=== PATIENT | female | born 1935 | race Hispanic/Latino ===

== ENCOUNTER 2016-12-06 19:30 | Outpatient (CLI) | payer MEDICARE, MEDICAID | END 2016-12-06 19:31 | disposition home or self-care (01) | LOC: SLEEPLAB 19:30 | PROVIDERS: ATTEND Internal Medicine Pulmonary Disease | DX: G47.33 Obstructive sleep apnea (adult) (pediatric) (principal); E66.9 Obesity, unspecified; I10 Essential (primary) hypertension; G47.10 Hypersomnia, unspecified; G47.00 Insomnia, unspecified; F41.9 Anxiety disorder, unspecified | CPT/HCPCS: 95811 ==

== ENCOUNTER 2016-12-12 16:29 | Emergency (ER) | payer MEDICARE, MEDICAID ==
[2016-12-12 17:10] LABS: #Basophils 0.1 thou/uL (0.0-0.2); #Eosinphils 0.1 thou/uL (0.0-0.7); #Lymphocytes 1.7 thou/uL (1.20-3.40); #Monocytes 0.4 thou/uL (0.11-0.59); #Neutrophils 2.2 thou/uL (1.40-6.50); %Basophils 1.2 % (0.0-1.0); %Eosinophils 2.8 % (0.0-10.0); %Lymphocytes 38.3 % (21.0-51.0); %Monocytes 9.4 % (0.0-10.0); Hematocrit 29.7 % (36.0-47.0); Mean Platelet Volume 7.3 fL (7.4-10.4); Red Blood Cell (RBC) Count 3.07 mill/uL (4.20-5.40); White Blood Cell (WBC) Count 4.5 thou/uL (4.8-10.8)
[2016-12-12 17:38] LABS: ALT (SGPT) 11 U/L (8-55); AST (SGOT) 11 U/L (5-34); Alkaline Phosphatase 82 U/L (40-150); Anion Gap 12 mmol/L (10-20); BUN (Urea Nitrogen) 22 mg/dL (9.8-20.1); Bilirubin, Total 0.3 mg/dL (0.2-1.2); Calc. Creatinine Clearance 0 mL/min (70-130); Calcium 8.4 mg/dL (7.8-10.44); Carbon Dioxide 24 mmol/L (23-31); Chloride 102 mmol/L (98-107); Estimated GFR-MDRD 52; Globulin 5.9 g/dL (2.4-3.5); Protein, Total 8.8 g/dL (6.0-8.3)
[2016-12-12 18:43] LABS: Troponin I Less than 0.010 ng/mL (< 0.028)
--- NOTE | 2016-12-12 19:22 | RAD ---
UPRIGHT PORTABLE CHEST ONE VIEW: HISTORY: A 81-year-old female with dyspnea. COMPARISON: 10/19/2016. FINDINGS: Heart size is borderline enlarged. Bronchovascular markings are slightly prominent but no confluent pneumonia, overt edema, or pleural effusion. Stable appearance from 10/19/2016. IMPRESSION: Borderline cardiomegaly with increased bronchovascular markings, stable. No evidence of pneumonia, edema, or other acute process. POS: [facility]
[2016-12-12 19:27] LABS: Bilirubin Negative (Negative); Blood, Urine Negative (Negative); Glucose, Urine (Dipstick) Negative (Negative); Ketone, Urine Negative (Negative); Nitrite Negative (Negative); Protein, Urine (Dipstick) Negative (Neg-Trace); Urobilinogen 0.2 mg/dL (0.2-1.0)
[2016-12-12 19:28] LABS: Bacteria/HPF None Seen HPF (None Seen); Hyaline Casts/LPF 0-3 HYALINE CAST LPF (0-3 Hyaline); RBC/HPF 0-3 HPF (0-3); Squamous Epithelial 0-3 HPF (0-3)
--- NOTE | 2016-12-12 20:29 | CT ---
BRAIN CT WITHOUT IV CONTRAST: History: 81-year-old female with history of seizure, hypertension, dyslipidemia. History of stable brain tumo r. FINDINGS: There is some atrophy and chronic white matter ischemic change noted bilaterally. There is 0.7 cm di ameter hyperdense mass along the right tentorium, most likely a small meningioma, stable from 7-24-1 5. No evidence for acute hemorrhage. No mass effect. Sinuses and mastoids are clear of acute process . IMPRESSION: Small stable right tentorial hyperdense mass, evidence for a small meningioma. No new mass or acute hemorrhage. Chronic white matter ischemic changes with some left sided basal ganglia lacunar infarct changes, stable. POS: [facility]
== END 2016-12-12 19:30 | disposition home or self-care (01) ==
LOC: ERS 16:29
DX: R56.9 Unspecified convulsions (principal); E78.5 Hyperlipidemia, unspecified; I10 Essential (primary) hypertension; Z79.82 Long term (current) use of aspirin; Z79.899 Other long term (current) drug therapy
CPT/HCPCS: 36415; 70450; 71010; 80053; 80177; 81003; 81015; 82553; 83605; 84146; 84484; 85025; 93005

== ENCOUNTER 2017-05-11 14:19 | Outpatient (CLI) | payer MEDICARE, MEDICAID | END 2017-05-11 14:20 | disposition home or self-care (01) | LOC: BICMAMMO 14:19 | PROVIDERS: ATTEND Nurse Practitioner Family | DX: Z13.820 Encounter for screening for osteoporosis (principal); M85.88 Other specified disorders of bone density and structure, other site; M85.852 Other specified disorders of bone density and structure, left thigh | CPT/HCPCS: 77080 ==

== ENCOUNTER 2017-06-12 08:26 | Inpatient (IN) | payer MEDICARE, MEDICAID ==
[2017-06-12 09:45] LABS: #Lymphocytes 0.7 thou/uL (1.20-3.40); #Monocytes 0.3 thou/uL (0.11-0.59); #Neutrophils 1.7 thou/uL (1.40-6.50); %Basophils 0.5 % (0.0-1.0); %Eosinophils 1.3 % (0.0-10.0); %Lymphocytes 25.8 % (21.0-51.0); %Monocytes 9.7 % (0.0-10.0); %Neutrophils 62.7 % (42.0-75.0); Hemoglobin 7.7 g/dL (12.0-16.0); Mean Corpuscular HGB CONC 33.6 g/dL (32.0-36.0); Mean Corpuscular Hemoglobin 32.6 pg (27.0-31.0); Mean Corpuscular Volume 97.1 fl (81.0-99.0); Mean Platelet Volume 7.7 fL (7.4-10.4); Platelet Count 165 thou/uL (130-400); RBC Distribution Width 14.5 % (11.5-14.5); Red Blood Cell (RBC) Count 2.35 mill/uL (4.20-5.40); White Blood Cell (WBC) Count 2.7 thou/uL (4.8-10.8)
[2017-06-12 10:02] LABS: ALT (SGPT) 10 U/L (8-55); AST (SGOT) 11 U/L (5-34); Albumin 2.5 g/dL (3.4-4.8); Alkaline Phosphatase 87 U/L (40-150); Anion Gap 8 mmol/L (10-20); BUN (Urea Nitrogen) 25 mg/dL (9.8-20.1); Bilirubin, Total 0.4 mg/dL (0.2-1.2); CK (CPK) 11 U/L (29-168); Calc. Creatinine Clearance 0 mL/min (70-130); Calcium 10.1 mg/dL (7.8-10.44); Carbon Dioxide 28 mmol/L (23-31); Chloride 102 mmol/L (98-107); Estimated GFR-MDRD 49; Globulin 7.9 g/dL (2.4-3.5); Glucose 92 mg/dL (83-110); Protein, Total 10.4 g/dL (6.0-8.3); Sodium 134 mmol/L (136-145)
[2017-06-12 10:08] LABS: CKMB 0.6 ng/mL (0-6.6); Troponin I Less than 0.010 ng/mL (< 0.028)
--- NOTE | 2017-06-12 10:14 | RAD ---
CHEST 1 VIEW: Date: 06/12/17 COMPARISON: 12/12/16. HISTORY: Chest pain. FINDINGS: Diminished lung volumes. Patchy interstitial and alveolar opacities. No consolidation or masses. No p neumothorax or osseous abnormalities. Normal cardiac silhouette. Atherosclerosis of aorta is noted. IMPRESSION: Patchy interstitial and alveolar opacities. Correlate for infiltrate. POS: [facility]
[2017-06-12 10:41] LABS: INR-International Normal Ratio 1.2; PTT 32.1 SEC (22.9-36.1); Prothrombin Time 15.2 SEC (12.0-14.7)
--- NOTE | 2017-06-12 11:41 | CT ---
CT OF THE BRAIN WITHOUT CONTRAST: Indication: History of weakness after fall on 06-03-17. The patient has been increasingly sleepy since the fall with decreased appetite and difficulty standing and walking. Comparison: The exam is compared to a prior dated 12-12-16. FINDINGS: Moderate chronic small vessel white matter ischemic change is stable. Lacunar infarct involving the l eft caudate head is stable. The partially calcified meningioma involving the right tentorium and left middle cranial fossa is stable. No acute infarct, hemorrhage, or hydrocephalus is present. Skull and extracranial soft tissues are unremarkable appearing. IMPRESSION: No acute intracranial abnormality. POS: [facility]
[2017-06-12 12:23] LABS: Bilirubin Negative (Negative); Blood, Urine Negative (Negative); Clarity CLEAR (Clear); Glucose, Urine (Dipstick) Negative (Negative); Leukocyte Negative (Negative); Nitrite Negative (Negative); Protein, Urine (Dipstick) Trace mg/dL (Neg-Trace); Specific Gravity, Urine 1.019 (1.002-1.036); pH, Urine 6.5 (5.0-9.0)
[2017-06-12 15:05] LABS: Troponin I 0.012 ng/mL (< 0.028)
[2017-06-12 18:02] LABS: Hemoglobin 9.9 g/dL (12.0-16.0)
[2017-06-12 18:22] LABS: Troponin I Less than 0.010 ng/mL (< 0.028)
[2017-06-12] MEDS ORDERED: Ondansetron ODT 4 MG TAB PO PRN (21:53)
[2017-06-12] MEDS ORDERED: Ondansetron HCl/PF 4 MG/2 ML Vial IVP PRN (21:53)
[2017-06-12] MEDS ORDERED: hydrALAZINE 20 MG/ML VIAL SLOW IVP PRN (21:53)
[2017-06-12] MEDS ORDERED: Acetaminophen 500 MG TAB PO PRN (21:53)
[2017-06-12] MEDS: Sodium Chloride 0.9% 1,000 ML IV SCH (23:55)
[2017-06-13] MEDS: Sodium Chloride 0.9% 1,000 ML IV SCH ×2 (04:02→18:38)
--- NOTE | 2017-06-13 04:10 | HP ---
DATE OF ADMISSION: 06/12/2017 PRIMARY CARE PHYSICIAN: You Brooks. CHIEF COMPLAINT: Falls, confusion and weakness. HISTORY OF PRESENT ILLNESS: This is a 81-year-old female who presented to [facility] Emergency Department with an apparent history of falls x2 on 06/03/2017 and 06/08/19 18, found by family members to be more lethargic and unable to walk with her usual rolling walker. T he patient with a significant history of prior seizure disorder, as well as meningioma conservatively managed. The family reports the patient was diagnosed with this several years prior to this evaluat ion; however, due to patient's anxiety, they have not disclosed the diagnosis to the patient and have been followed on a regular outpatient basis with serial CT imaging. No specific seizure-like activi ty was reported by family members and the patient exhibited no unilateral weakness. The family repor ts patient had been noted with a slower speech, decreased appetite, difficulty standing by herself. No specific current change to her chronic medication regimen, exposure history, travel, recent fever, chills or immunizations. No specific documented or historical report of head trauma or loss of cons ciousness after recent falls. In the emergency room, the patient underwent general evaluation includ ing metabolic screening showing hemoglobin of 7.7 in the context of known chronic normocytic anemia. Most recent hemoglobin on record dated on 12/12/2016, 9.9. The patient was typed and crossed and gi pritesh 1 unit of packed red blood cells. The patient underwent CT imaging of the brain showing stable m eningioma without an acute process. EKG showed no acute findings and patient was treated symptomatic ally and supportively. The patient was referred to the Hospitalist Service for further evaluation. PAST MEDICAL HISTORY: 1. History of chronic stable meningioma. 2. History of subdural hematoma status post mechanical fall, medically managed. 3. Seizure disorder. 4. Hypertension. 5. Hyperlipidemia. 6. Generalized weakness. 7. History of falls. PAST SURGICAL HISTORY: 1. Status post total abdominal hysterectomy. 2. Status post bilateral salpingo-oophorectomy. 3. Status post thyroidectomy. 4. Status post left ankle surgery. CURRENT MEDICATIONS: 1. Amlodipine 10 mg 1 tab p.o. daily. 2. Hydrochlorothiazide 25 mg p.o. daily. 3. Keppra 500 mg p.o. b.i.d. 4. Lisinopril 20 mg p.o. daily. ALLERGIES: No known drug allergies. FAMILY HISTORY: Positive for hypertension and cancer. SOCIAL HISTORY: Patient is accompanied by multiple family members in the emergency room. Resides in the [place], [place] area. No current alcohol, tobacco or illicit drug use. Ambulatory with use of a r olling walker. Recent falls x2 on 06/03/2017 and 06/07/2017. REVIEW OF SYSTEMS: The following complete review of systems was negative, unless otherwise mentioned in the HPI or below: Constitutional: Weight loss or gain, ability to conduct usual activities. Sk in: Rash, itching. Eyes: Double vision, pain. ENT/Mouth: Nose bleeding, neck stiffness, pain, te nderness. Cardiovascular: Palpitations, dyspnea on exertion, orthopnea. Respiratory: Shortness of breath, wheezing, cough, hemoptysis, fever or night sweats. Gastrointestinal: Poor appetite, abdom inal pain, heartburn, nausea, vomiting, constipation, or diarrhea. Genitourinary: Urgency, frequenc y, dysuria, nocturia. Musculoskeletal: Pain, swelling. Neurologic/Psychiatric: Anxiety, depressio n. Allergy/Immunologic: Skin rash, bleeding tendency. PHYSICAL EXAMINATION: VITAL SIGNS: On admission, blood pressure 110/81, pulse 72, respiratory rate 18, temperature 98.2 de grees Fahrenheit, O2 saturation 95% on room air. GENERAL APPEARANCE: This is a 81-year-old female, ill appearing, lethargic, in mild distres s. HEENT: Pupils are equal, round, and reactive to light and accommodation. Extraocular muscles are in tact. No scleral icterus, no conjunctival injection. Nares patent. OP is clear. Teeth in fair rep air. NECK: Supple, no cervical adenopathy, no thyromegaly, no carotid bruits, no JVD appreciated. Cervic al spine with full active and passive range of motion. CHEST: Lungs are clear to auscultation bilaterally. CARDIOVASCULAR: S1, S2, without noted murmur. ABDOMEN: Rounded, soft, nontender, nondistended. Bowel sounds are positive in all four quadrants. There is no hepatosplenomegaly, no abdominal bruits, no rebound or guarding appreciated. EXTREMITIES: Warm and dry with fair turgor. No clubbing, cyanosis or asymmetric edema appreciated. Pulses palpable distally at the dorsalis pedis, posterior tibial, and popliteal arteries bilaterally . Capillary refill less than 2 seconds. NEUROLOGIC: Cranial nerves II-XII are grossly intact. No focal or lateralizing signs appreciated. [place] coma scale 14. PERTINENT LABORATORY AND X-RAY FINDINGS: Sodium 134, potassium 4.0, chloride 102, CO2 of 28, BUN 25, creatinine 1.08 with estimated GFR 49, glucose 92. Lactic acid level 0.9, calcium 10.1. LFTs withi n normal limits. Troponin I negative x3. Serum total protein 10.4. CBC showed a white blood cell c ount of 2.7, hemoglobin ranged between 7.7 and 9.9. Hematocrit ranged between 22.9 to 30, platelet c ount 165 with normal differential. PT 15.2, INR 1.2, PTT 32.1. [facility]inalysis negative[facility]2017 showed no acute intracranial process. Chronic ischemic white mat ter changes noted. Lacunar infarct involving the left caudate head stable. Partially calcified meni ngioma in the right tentorium and left middle cerebral cranial fossa. Portable chest x-ray dated 04/2017 showed patchy interstitial changes bilaterally. EKG dated 06/12/2017 by my interpretation sh ows sinus mechanism with heart rates in the 60s. Normal R-wave progression noted in the precordial l torsten. Normal axis. T-wave inversion noted in leads III and F as well as V3 through V4. ASSESSMENT AND PLAN: 1. Acute/subacute normocytic anemia. The patient will be placed on observation status. Status post 1 unit of packed red blood cells in the emergency department. We will check stool guaiac. Check ir on studies, B12 and folate level in the a.m. No current obvious evidence of acute blood loss. We wi ll continue to monitor serial hemoglobin and hematocrit. Suspect component due to chronic kidney dis ease. 2. Acute metabolic encephalopathy. Suspect multifactorial. Continue general supportive measures. Continue to monitor serial hemoglobin and hematocrit. Check orthostatic vital signs in the a.m. Con tinue intravenous normal saline at 75 mL per hour. 3. Generalized weakness with falls. Obtain PT evaluation in the a.m. General fall risk precautions . Check orthostatic vital signs. 4. Acute kidney injury on chronic kidney disease stage 3. Continue intravenous normal saline at 75 mL per hour. Avoid nephrotoxic agents and limit contrast exposure. Repeat creatinine in the a.m. 5. Hypertension. We will obtain accurate home blood pressure regimen and monitor clinically. 6. Seizure disorder. Continue Keppra 500 mg p.o. b.i.d. 7. Prophylaxis. Sequential compression devices while in bed. Pepcid 20 mg p.o. b.i.d. General fal l risk precautions. PT evaluation in the a.m. 8. Code status is FULL. Surrogate medical decision maker is patient's son.
[2017-06-13 09:14] LABS: Reticulocyte Count 0.8 % (0.5-1.5)
[2017-06-13 09:36] LABS: ALT (SGPT) 15 U/L (8-55); AST (SGOT) 14 U/L (5-34); Albumin 2.3 g/dL (3.4-4.8); Alkaline Phosphatase 91 U/L (40-150); Anion Gap 8 mmol/L (10-20); BUN (Urea Nitrogen) 20 mg/dL (9.8-20.1); Bilirubin, Total 0.3 mg/dL (0.2-1.2); Calc. Creatinine Clearance 56 mL/min (70-130); Carbon Dioxide 27 mmol/L (23-31); Chloride 104 mmol/L (98-107); Estimated GFR-MDRD 54; Globulin 7.7 g/dL (2.4-3.5); Glucose 93 mg/dL (83-110); Iron 43 ug/dL (50-170); Iron Binding Capacity, Total 181 mcg/dL (265-497); Potassium 3.9 mmol/L (3.5-5.1); Sodium 135 mmol/L (136-145)
[2017-06-13 10:05] LABS: Folate (Folic Acid) 13.9 ng/mL (7.0-31.4)
[2017-06-13 10:19] LABS: Eosinophils 7 % (0-10); Hemoglobin 8.8 g/dL (12.0-16.0); Lymphocytes 49 % (21-51); MDiff Complete? YES; Mean Corpuscular HGB CONC 34.5 g/dL (32.0-36.0); Mean Corpuscular Hemoglobin 32.5 pg (27.0-31.0); Mean Corpuscular Volume 94.2 fl (81.0-99.0); Mean Platelet Volume 7.9 fL (7.4-10.4); Monocytes 7 % (0-10); Neutrophil 37 % (42-75); Platelet Count 146 thou/uL (130-400); RBC Distribution Width 13.9 % (11.5-14.5); White Blood Cell (WBC) Count 2.4 thou/uL (4.8-10.8)
[2017-06-13] MEDS: Famotidine 20 MG TAB PO SCH ×2 (11:11→21:04)
[2017-06-13] MEDS: levETIRAcetam 500 MG TAB PO SCH ×2 (11:11→21:04)
[2017-06-13] MEDS: Amlodipine 10 MG TAB PO SCH (11:11)
--- NOTE | 2017-06-13 17:37 | PDOC.PN ---
- Subjective Encounter Start Date: 06/13/17 Encounter Start Time: 17:25 Subjective: f/u for AMS, acute/chronic anemia s/p 1u PRBC's. More awake per -: family report but still confused. - Objective Resuscitation Status: Resuscitation Status FULL:Full Resuscitation MAR Reviewed: Yes Vital Signs & Weight: Vital Signs (12 hours) Temp Pulse Pulse Pulse Pulse Resp BP 06/13/17 11:11 70 154/67 H 06/13/17 11:00 94.8 F L 65 17 06/13/17 10:03 68 69 66 06/13/17 08:05 98.7 F 74 19 138/61 06/13/17 08:00 98.3 F 70 19 BP BP BP BP Pulse Ox Pulse Ox Pulse Ox 06/13/17 11:11 06/13/17 11:00 136/60 95 06/13/17 10:03 200/72 H 142/63 H 189/74 H 85 L 86 L 06/13/17 08:05 92 L 06/13/17 08:00 Weight Admit Weight 168 lb 14.4 oz Weight 168 lb 14.4 oz I&O: 06/12/17 06/13/17 06/14/17 06:59 06:59 06:59 Intake Total 400 Balance 400 Result Diagrams: 06/13/17 08:47 06/13/17 08:47 Additional Labs: Microbiology 06/12/17 14:20 Stool - Formed Stool Occult Blood (TIMOTHY) - Final Laboratory Tests 06/12/17 06/12/17 06/12/17 08:58 08:58 17:35 Hgb 7.7 L 9.9 L Retic Count Immature Retic Fraction Lactic Acid 0.9 Iron TIBC Ferritin Vitamin B12 Folate 06/13/17 06/13/17 06/13/17 08:47 08:47 08:47 Hgb Retic Count Immature Retic Fraction Lactic Acid Iron 43 L TIBC 181 L Ferritin 80.57 Vitamin B12 357 Folate 13.90 06/13/17 08:47 Hgb Retic Count 0.8 Immature Retic Fraction 0.276 Lactic Acid Iron TIBC Ferritin Vitamin B12 Folate Radiology Reviewed by me: Yes (CT brain - negative for acute process, chronic changes) EKG Reviewed by me: Yes (Tele - SR in 70's) Phys Exam - Physical Examination alert, nods to questions HEENT: PERRLA, oral pharynx no lesions Neck: no JVD, supple Respiratory: no wheezing, clear to auscultation bilateral Cardiovascular: RRR Gastrointestinal: soft, non-tender, no distention, positive bowel sounds Musculoskeletal: no edema, pulses present Neurological: normal sensation, moves all 4 limbs A x O x 2 Skin: normal turgor, cap refill <2 seconds Dx/Plan (1) Normocytic anemia Code(s): D64.9 - ANEMIA, UNSPECIFIED Status: Acute Comment: ? subacute, s/p 1u PRBC's, likely component of iron-deficiency, start FeSO4 324mg BID (2) Acute metabolic encephalopathy Code(s): G93.41 - METABOLIC ENCEPHALOPATHY Status: Acute Comment: likely multifactorial including polypharmacy, dehydration (3) General weakness Code(s): R53.1 - WEAKNESS Status: Chronic Comment: PT evaluation for functional assessment (4) Falls Code(s): W19.XXXA - UNSPECIFIED FALL, INITIAL ENCOUNTER Status: Acute Comment: See above, fall risk precautions (5) THOM (acute kidney injury) Code(s): N17.9 - ACUTE KIDNEY FAILURE, UNSPECIFIED Status: Acute Comment: improved with IVF's, continue IVF's and avoid nephrotoxic meds and contrast media (6) CKD (chronic kidney disease), stage III Code(s): N18.3 - CHRONIC KIDNEY DISEASE, STAGE 3 (MODERATE) Status: Chronic (7) Seizure disorder Code(s): G40.909 - EPILEPSY, UNSP, NOT INTRACTABLE, WITHOUT STATUS EPILEPTICUS Status: Chronic Comment: No recurrent seizure activity, continue Keppra 500mg BID - Plan plan discussed w/ family, PT/OT, social sciences chair, speech therapy, out of bed/ ambulate, DVT proph w/SCDs Stable overall -: Continue IVF's 100ml/h -: ST for assessment of po intake and safe swallowing -: Hold antihypertensives x 24h and monitor clinically -: AM lab: BMP, CBC, Ammonia * Convert to inpt status
[2017-06-13] MEDS: cloNIDine 0.1 MG TAB PO PRN (21:04)
[2017-06-14] MEDS: Sodium Chloride 0.9% 1,000 ML IV SCH ×2 (05:23→19:55)
[2017-06-14 07:50] LABS: Mean Corpuscular HGB CONC 33.8 g/dL (32.0-36.0); Mean Corpuscular Hemoglobin 32.9 pg (27.0-31.0); Mean Corpuscular Volume 97.5 fl (81.0-99.0); Mean Platelet Volume 7.7 fL (7.4-10.4); Platelet Count 143 thou/uL (130-400); RBC Distribution Width 14.1 % (11.5-14.5); Red Blood Cell (RBC) Count 2.43 mill/uL (4.20-5.40); White Blood Cell (WBC) Count 2.7 thou/uL (4.8-10.8)
[2017-06-14 07:58] LABS: Anion Gap 8 mmol/L (10-20); BUN (Urea Nitrogen) 14 mg/dL (9.8-20.1); Calc. Creatinine Clearance 64 mL/min (70-130); Calcium 9.3 mg/dL (7.8-10.44); Carbon Dioxide 26 mmol/L (23-31); Chloride 107 mmol/L (98-107); Estimated GFR-MDRD 62; Glucose 89 mg/dL (83-110); Potassium 3.8 mmol/L (3.5-5.1); Sodium 137 mmol/L (136-145)
[2017-06-14 08:55] LABS: Band 5 % (5-11); Eosinophils 4 % (0-10); Lymphocytes 47 % (21-51); MDiff Complete? YES; Monocytes 9 % (0-10); Neutrophil 35 % (42-75); PLT Morphology Comment Appears Adequate; Polychromasia SLIGHT = 2-3 cells (100X) (0-2/hpf); Rouleaux Formation SLIGHT = 1-5 cells (100X) (None Seen)
[2017-06-14] MEDS: levETIRAcetam 500 MG TAB PO SCH ×2 (10:56→20:35)
[2017-06-14] MEDS: Amlodipine 10 MG TAB PO SCH (10:57)
[2017-06-14] MEDS: Ferrous Sulfate 325 MG TAB PO SCH ×2 (11:01→17:41)
[2017-06-14] MEDS: Famotidine 20 MG TAB PO SCH ×2 (11:01→20:35)
--- NOTE | 2017-06-14 17:18 | PDOC.PN ---
- Subjective Encounter Start Date: 06/14/17 Encounter Start Time: 17:00 Subjective: f/u for general weakness, encephalopathy and anemia s/p 1u PRBC's. -: Still weak but ambulated with PT using RW up to 100' - Objective Resuscitation Status: Resuscitation Status FULL:Full Resuscitation MAR Reviewed: Yes Vital Signs & Weight: Vital Signs (12 hours) Temp Pulse Pulse Pulse Resp BP BP 06/14/17 14:38 67 66 138/55 L 150/67 H 06/14/17 10:57 72 06/14/17 09:45 97.3 F L 72 22 H 06/14/17 08:00 97.3 F L 72 22 H BP 06/14/17 14:38 06/14/17 10:57 06/14/17 09:45 187/76 H 06/14/17 08:00 Weight Admit Weight 168 lb 14.4 oz Weight 172 lb I&O: 06/13/17 06/14/17 06/15/17 06:59 06:59 06:59 Intake Total 400 2062 Balance 400 2062 Result Diagrams: 06/14/17 07:33 06/14/17 07:33 Additional Labs: Microbiology 06/12/17 14:20 Stool - Formed Stool Occult Blood (TIMOTHY) - Final Laboratory Tests 06/12/17 06/12/17 06/12/17 08:58 08:58 17:35 WBC Hgb 7.7 L 9.9 L Retic Count Immature Retic Fraction Lactic Acid 0.9 Iron TIBC Ferritin Ammonia Vitamin B12 Folate 06/13/17 06/13/17 06/13/17 08:47 08:47 08:47 WBC Hgb Retic Count Immature Retic Fraction Lactic Acid Iron 43 L TIBC 181 L Ferritin 80.57 Ammonia Vitamin B12 357 Folate 13.90 06/13/17 06/13/17 06/14/17 08:47 08:47 07:33 WBC 2.4 L Hgb 8.8 L Retic Count 0.8 Immature Retic Fraction 0.276 Lactic Acid Iron TIBC Ferritin Ammonia 62 Vitamin B12 Folate EKG Reviewed by me: Yes (Tele - SR) Phys Exam - Physical Examination alert, responds to questions slowly HEENT: PERRLA, oral pharynx no lesions Neck: no JVD, supple Respiratory: no wheezing, clear to auscultation bilateral Cardiovascular: RRR Gastrointestinal: soft, non-tender, no distention, positive bowel sounds Musculoskeletal: pulses present Neurological: normal sensation, moves all 4 limbs A x O x 2 Skin: normal turgor, cap refill <2 seconds Dx/Plan (1) Normocytic anemia Code(s): D64.9 - ANEMIA, UNSPECIFIED Status: Acute Comment: ? subacute, s/p 1u PRBC's, likely component of iron-deficiency, start FeSO4 324mg BID, saline lock IVF's (2) Acute metabolic encephalopathy Code(s): G93.41 - METABOLIC ENCEPHALOPATHY Status: Acute Comment: likely multifactorial including polypharmacy, dehydration (3) General weakness Code(s): R53.1 - WEAKNESS Status: Chronic Comment: PT evaluation for functional assessment (4) Falls Code(s): W19.XXXA - UNSPECIFIED FALL, INITIAL ENCOUNTER Status: Acute Comment: See above, fall risk precautions (5) THOM (acute kidney injury) Code(s): N17.9 - ACUTE KIDNEY FAILURE, UNSPECIFIED Status: Acute Comment: improved with IVF's, continue IVF's and avoid nephrotoxic meds and contrast media (6) CKD (chronic kidney disease), stage III Code(s): N18.3 - CHRONIC KIDNEY DISEASE, STAGE 3 (MODERATE) Status: Chronic (7) Seizure disorder Code(s): G40.909 - EPILEPSY, UNSP, NOT INTRACTABLE, WITHOUT STATUS EPILEPTICUS Status: Chronic Comment: No recurrent seizure activity, continue Keppra 500mg BID - Plan plan discussed w/ family, PT/OT, older adult social work specialist, out of bed/ambulate, DVT proph w/SCDs Stable overall -: Check bilat hip x-rays to r/o fx -: Saline lock IVF -: PT for mobilization -: CM for HH and PT * AM lab: CBC * Likely home in am
--- NOTE | 2017-06-14 22:08 | RAD ---
BILATERAL HIPS FOUR VIEWS: 06/14/17 HISTORY: History of falls, pain, limited mobility. Two views of the right hip and two views of the left hip are performed. There is no evidence for acut e femoral fracture. Mild degenerative changes of both hip joints. There is a suggestion of some irreg ularity of the right superior and inferior ischial pubic rami, these findings could be consistent wit h fractures, age indeterminate. If there is concern for acute pelvic fracture, a followup AP and righ t and left oblique views of the pelvis might give additional information in this regard. IMPRESSION: Degenerative changes of both hip joints without acute femoral fracture. Questionable right sided supe rior and inferior ischiopubic rami fracture on the right side, if that is a concern of this being acu te, followup complete pelvic x-ray examination is suggested. POS: [facility]
[2017-06-15 05:26] LABS: Band 2 % (5-11); Eosinophils 1 % (0-10); Hemoglobin 8.6 g/dL (12.0-16.0); Lymphocytes 62 % (21-51); MDiff Complete? YES; Mean Corpuscular HGB CONC 33.3 g/dL (32.0-36.0); Mean Corpuscular Hemoglobin 31.7 pg (27.0-31.0); Mean Corpuscular Volume 95.2 fl (81.0-99.0); Mean Platelet Volume 6.9 fL (7.4-10.4); Monocytes 4 % (0-10); Neutrophil 31 % (42-75); PLT Morphology Comment Appears Adequate; Platelet Count 153 thou/uL (130-400); RBC Distribution Width 13.9 % (11.5-14.5); White Blood Cell (WBC) Count 3.8 thou/uL (4.8-10.8)
[2017-06-15] MEDS ORDERED: Sodium Chloride 0.9% 10 ML ONE (08:19)
[2017-06-15] MEDS: levETIRAcetam 500 MG TAB PO SCH ×2 (10:25→20:38)
[2017-06-15] MEDS: Famotidine 20 MG TAB PO SCH ×2 (10:26→20:38)
[2017-06-15] MEDS: Ferrous Sulfate 325 MG TAB PO SCH ×2 (10:26→17:32)
[2017-06-15] MEDS: Amlodipine 10 MG TAB PO SCH (10:26)
[2017-06-15] MEDS: cloNIDine 0.1 MG TAB PO PRN (10:27)
--- NOTE | 2017-06-15 15:02 | EKG ---
Test Reason : Blood Pressure : / mmHG Vent. Rate : 068 BPM Atrial Rate : 068 BPM P-R Int : 148 ms QRS Dur : 082 ms QT Int : 384 ms P-R-T Axes : 000 049 001 degrees QTc Int : 408 ms Poor data quality, interpretation may be adversely affected Normal sinus rhythm Nonspecific T wave abnormality Abnormal ECG Confirmed by SHON ORDOÑEZ ([id number]), design editor KATRINA KIRBY ([id number]) on 06/15/2017 3:00:34 PM Referred By: Confirmed By:SHON ORDOÑEZ
--- NOTE | 2017-06-15 18:44 | PDOC.PN ---
- Subjective Encounter Start Date: 06/15/17 Encounter Start Time: 18:20 Subjective: f/u general weakness, AMS, anemia s/p 1u PRBC's. Overall improved -: and more alert. Eating much better today. Nsg reports new-onset -: A-fib RVR in 130's. Pt denies CP, SOB. - Objective Resuscitation Status: Resuscitation Status FULL:Full Resuscitation MAR Reviewed: Yes Vital Signs & Weight: Vital Signs (12 hours) Temp Pulse Resp BP BP BP Pulse Ox 06/15/17 17:10 97.2 F L 138 H 16 152/83 H 06/15/17 16:00 97.2 F L 130 H 18 145/68 H 95 06/15/17 12:00 97.2 F L 64 18 119/69 06/15/17 10:27 180/71 H 06/15/17 10:26 66 178/80 H 06/15/17 10:00 98.3 F 66 16 178/80 H 06/15/17 08:00 98.3 F 66 16 188/81 H 96 Weight Admit Weight 168 lb 14.4 oz Weight 175 lb 12.8 oz I&O: 06/14/17 06/15/17 06/16/17 06:59 06:59 06:59 Intake Total 2062 610 810 Output Total 1900 700 Balance 2062 -1290 110 Result Diagrams: 06/15/17 04:32 06/14/17 07:33 Radiology Reviewed by me: Yes (X-rays bilat hips - no acute fx, ? R pubic rami fx) EKG Reviewed by me: Yes (Tele - A-fib in 120's) Phys Exam - Physical Examination Constitutional: NAD smiling, eating dinner HEENT: PERRLA, oral pharynx no lesions Neck: no JVD, supple Respiratory: no wheezing, clear to auscultation bilateral Cardiovascular: irregular Gastrointestinal: soft, non-tender, no distention, positive bowel sounds Musculoskeletal: no edema, pulses present Neurological: normal sensation, moves all 4 limbs Skin: normal turgor, cap refill <2 seconds Dx/Plan (1) Atrial fibrillation with RVR Code(s): I48.91 - UNSPECIFIED ATRIAL FIBRILLATION Status: Acute Comment: Cardizem 20mg IV x 1 dose now, then infusion at 5mg/h, start Cardizem 30mg po q6h, check 2D echo, Consult Cardiology in am (2) Normocytic anemia Code(s): D64.9 - ANEMIA, UNSPECIFIED Status: Acute Comment: ? subacute, s/p 1u PRBC's, likely component of iron-deficiency, start FeSO4 324mg BID, saline lock IVF's (3) Acute metabolic encephalopathy Code(s): G93.41 - METABOLIC ENCEPHALOPATHY Status: Acute Comment: likely multifactorial including polypharmacy, dehydration, resolving (4) General weakness Code(s): R53.1 - WEAKNESS Status: Chronic Comment: PT evaluation for functional assessment (5) Falls Code(s): W19.XXXA - UNSPECIFIED FALL, INITIAL ENCOUNTER Status: Acute Comment: See above, fall risk precautions, check pelvic x-rays after ? R pubic rami fx on hip radiographs (6) THOM (acute kidney injury) Code(s): N17.9 - ACUTE KIDNEY FAILURE, UNSPECIFIED Status: Acute Comment: improved with IVF's, continue IVF's and avoid nephrotoxic meds and contrast media (7) CKD (chronic kidney disease), stage III Code(s): N18.3 - CHRONIC KIDNEY DISEASE, STAGE 3 (MODERATE) Status: Chronic (8) Seizure disorder Code(s): G40.909 - EPILEPSY, UNSP, NOT INTRACTABLE, WITHOUT STATUS EPILEPTICUS Status: Chronic Comment: No recurrent seizure activity, continue Keppra 500mg BID - Plan plan discussed w/ family, PT/OT, social services specialist, out of bed/ambulate, DVT proph w/SCDs Start Cardizem gtt -: Cardizem 30mg po q6h -: Hold anticoagulation due to falls, anemia and risk for bleeding -: 2D Echo pending -: PT for mobilization, likely will need HH with PT * .
[2017-06-15] MEDS ORDERED: Diltiazem 125 MG in Sodium Chloride 0.9% 100 ML IVPB SCH (19:15)
--- NOTE | 2017-06-15 23:53 | ULT ---
LIMITED ABDOMINAL ULTRASOUND: 06/15/17 Attention is made to the left lower quadrant to a focal area of pain with concern for the possibility of a hernia. There is visualized peristalsing bowel in the left lower quadrant but no evidence for an anterior abd ominal wall hernia in the region of the left lower quadrant area of pain. If that remains a persisten t concern, a followup abdomen and pelvic CT scan might be better in assessing for that possibility. IMPRESSION: Unremarkable limited abdominal ultrasound. No evidence for anterior abdominal wall hernia in the lionel on of the left lower quadrant area of pain. POS: [facility]
[2017-06-16] MEDS: Famotidine 20 MG TAB PO SCH ×2 (09:38→21:13)
[2017-06-16] MEDS: levETIRAcetam 500 MG TAB PO SCH ×2 (09:38→21:12)
[2017-06-16] MEDS: Ferrous Sulfate 325 MG TAB PO SCH ×2 (09:38→17:12)
[2017-06-16] MEDS: Amlodipine 10 MG TAB PO SCH (09:56)
[2017-06-16 11:04] VITALS: BMI 33.8
--- NOTE | 2017-06-16 13:33 | RAD ---
PELVIC RADIOGRAPH THREE VIEW SERIES: CLINICAL HISTORY: Pain. Fracture. FINDINGS: There is cortical irregularity involving the medial aspect of the right superior pubic ramus with ass ociated sclerosis, compatible with recent fracture. No significant dislocation is associated with th e fracture site. Hip joints are maintained in alignment. No abnormal diastasis of symphysis pubis o r sacroiliac joints. Numerous soft tissue calcifications overly the pelvis. IMPRESSION: Fracture of the medial aspect of the superior right pubic ramus with associated sclerosis. No signif icant displacement. POS: [facility]
--- NOTE | 2017-06-16 16:11 | CON ---
DATE OF SERVICE: 06/16/2017 CARDIOLOGY CONSULTATION REASON FOR CONSULTATION: Atrial fibrillation, rapid ventricular response. HISTORY OF PRESENT ILLNESS: Ms. Guillen is a very pleasant 81-year-old female well known to myself, [place] speaking only, who comes to the hospital for falls and confusion. I had her seen originally for syncope and eventually was diagnosed with seizures. She was started on Keppra and her seizures significantly improved. She actually had falls last month twice on 06/03/2017 and 06/08/19 18. She was found very lethargic and unable to walk in her usual rolling walker. She was brought in for this, was found to be anemic, thought she was symptomatic from her anemia and blood was given. She slowly started to get better. She has a history of a partially calcified meningioma, so CT imagi ng of the brain was done and this was stable without any acute problems. She was close to being disc harged and she went into atrial fibrillation and RVR yesterday and Cardiology is being consulted for this. She does not have a history of atrial fibrillation. PAST MEDICAL HISTORY: 1. Partially calcified meningioma. 2. History of subdural hematoma status post mechanical fall. 3. Seizure disorder. 4. Hypertension. 5. Hyperlipidemia. 6. Generalized weakness. 7. History of falls. PAST SURGICAL HISTORY: 1. Total abdominal hysterectomy. 2. Bilateral salpingo-oophorectomy. 3. Thyroidectomy. 4. Left ankle surgery. OUTPATIENT MEDICATIONS: Include, 1. Amlodipine 10 mg a day. 2. Hydrochlorothiazide 25 mg a day. 3. Keppra 500 mg b.i.d. 4. Lisinopril 20 mg a day. 5. Aspirin 81 day. ALLERGIES: No known drug allergies. FAMILY HISTORY: Noncontributory. SOCIAL HISTORY: No alcohol, tobacco or drugs. REVIEW OF SYSTEMS: A 12-point review of systems was done and is all negative unless stated in the hi story of present illness. PHYSICAL EXAMINATION: VITAL SIGNS: Temperature 97.6, pulse 63, respiratory rate 20, satting 96% on room air, blood pressur e 129/61. GENERAL: Awake and alert. She is oriented to person and place, difficulty with time, unable to answ er at the end and in no distress. HEENT: Normocephalic, atraumatic. NECK: Supple. LUNGS: Clear. CARDIOVASCULAR: S1, S2, no S3, S4, no murmurs or rubs. ABDOMEN: Soft, positive bowel sounds. EXTREMITIES: No edema. SKIN: Warm and dry. LABORATORY WORK: Reviewed. CBC with a white count of 3.8, hemoglobin 8.6, as low as 7.7 on admissio n, normal platelets. She was anemic and reduced white cells. Coags were reviewed. Chemistries were reviewed. Her potassium has remained normal. Her troponins were normal x3. Albumin of 2.3. Vitam in B12 and folate were normal. Telemetry was reviewed. She was in atrial fibrillation and RVR yesterday. She has been in sinus sin ce earlier today. ASSESSMENT AND PLAN: Atrial fibrillation with rapid ventricular response. There is a new diagnosis. She would not be a good candidate for full anticoagulation given the frequent falls and given the h istory of seizures and likelihood of hitting her head while on full anticoagulation. Also, her histo ry of meningioma, so a brain mass, probably not the best candidate for full anticoagulation. She has been taking an aspirin every day. I would definitely continue this. She may need a GI workup for h er anemia. We will leave this up to her primary team. Otherwise, from the cardiac perspective, we ag ree on her dose of diltiazem 120 mg daily. I would hold on her amlodipine. Dr. Acosta has already don e this. I think she should be able to be discharged home on aspirin only for stroke prophylaxis and the current diltiazem dose. Thank you for letting us to participate in the care of your patient. We will follow.
--- NOTE | 2017-06-16 18:20 | PDOC.PN ---
- Subjective Encounter Start Date: 06/16/17 Encounter Start Time: 18:10 Subjective: f/u for encephalopathy, general weakness and new-onset A-fib RVR. -: Rate improved and converted to SR on Diltiazem. No anticoag due to -: falls and hx of meningiomas. Overall feels better, more alert per family - Objective Resuscitation Status: Resuscitation Status FULL:Full Resuscitation MAR Reviewed: Yes Vital Signs & Weight: Vital Signs (12 hours) Temp Pulse Resp BP BP BP Pulse Ox 06/16/17 12:00 97.6 F 63 20 129/61 06/16/17 09:56 61 153/69 H 06/16/17 09:54 61 153/69 H 06/16/17 08:00 97.5 F L 75 14 96 06/16/17 07:55 97.5 F L 75 14 114/61 96 Weight Admit Weight 168 lb 14.4 oz Weight 173 lb 3.2 oz I&O: 06/15/17 06/16/17 06/17/17 06:59 06:59 06:59 Intake Total 610 1340 Output Total 1900 700 Balance -1290 640 Result Diagrams: 06/15/17 04:32 06/14/17 07:33 Radiology Reviewed by me: Yes (Pelvic x-rays - non-displaced R pubic rami fx, old) EKG Reviewed by me: Yes (Tele - SR in 60's) Phys Exam - Physical Examination Constitutional: NAD alert, smiles HEENT: PERRLA, oral pharynx no lesions Neck: no JVD, supple Respiratory: no wheezing, clear to auscultation bilateral Cardiovascular: RRR Gastrointestinal: soft, non-tender, no distention, positive bowel sounds Musculoskeletal: no edema, pulses present Neurological: non-focal, moves all 4 limbs A x O x 2 Skin: normal turgor, cap refill <2 seconds Dx/Plan (1) Atrial fibrillation with RVR Code(s): I48.91 - UNSPECIFIED ATRIAL FIBRILLATION Status: Acute Comment: Converted to SR, start Cardizem 120mg daily, ASA but no anticoagulation due to falls and meningiomas, appreciate Cardiology assistance (2) Normocytic anemia Code(s): D64.9 - ANEMIA, UNSPECIFIED Status: Acute Comment: ? subacute, s/p 1u PRBC's, likely component of iron-deficiency, start FeSO4 324mg BID, saline lock IVF's (3) Acute metabolic encephalopathy Code(s): G93.41 - METABOLIC ENCEPHALOPATHY Status: Acute Comment: likely multifactorial including polypharmacy, dehydration, suspect component of dementia (4) General weakness Code(s): R53.1 - WEAKNESS Status: Chronic Comment: PT evaluation for functional assessment, improved, recommend HH with PT on d/c (5) Falls Code(s): W19.XXXA - UNSPECIFIED FALL, INITIAL ENCOUNTER Status: Acute Comment: See above, fall risk precautions, R pubic rami fracture likely subacute on pelvic x-rays, supportive mgmt, RW with CGA (6) THOM (acute kidney injury) Code(s): N17.9 - ACUTE KIDNEY FAILURE, UNSPECIFIED Status: Acute Comment: improved with IVF's, continue IVF's and avoid nephrotoxic meds and contrast media (7) CKD (chronic kidney disease), stage III Code(s): N18.3 - CHRONIC KIDNEY DISEASE, STAGE 3 (MODERATE) Status: Chronic (8) Seizure disorder Code(s): G40.909 - EPILEPSY, UNSP, NOT INTRACTABLE, WITHOUT STATUS EPILEPTICUS Status: Chronic Comment: No recurrent seizure activity, continue Keppra 500mg BID - Plan plan discussed w/ family, 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
[2017-06-17] MEDS: Ferrous Sulfate 325 MG TAB PO SCH ×2 (08:26→17:03)
[2017-06-17] MEDS: Famotidine 20 MG TAB PO SCH (08:27)
[2017-06-17] MEDS: levETIRAcetam 500 MG TAB PO SCH (08:27)
[2017-06-17] MEDS ORDERED: Aspirin 81 mg Enteric Coated Tablet PO SCH (09:00)
[2017-06-17] MEDS ORDERED: Bisacodyl 5 MG TAB PO PRN (10:10)
[2017-06-17] MEDS ORDERED: Bisacodyl 5 MG TAB PO SCH (10:15)
[2017-06-17 16:35] VITALS: BP 139/78; TEMP 98.1
--- NOTE | 2017-06-18 00:14 | DIS ---
PRIMARY CARE PROVIDER: [facility]. DATE OF ADMISSION: 06/12/2017 DATE OF DISCHARGE: 06/17/2017 DISCHARGE DIAGNOSES: 1. Acute encephalopathy. 2. Iron deficiency. 3. Anemia. 4. History of falls. 5. Atrial fibrillation with rapid ventricular response. CONDITION OF PATIENT ON THE DAY OF DISCHARGE: Stable. I assessed Ms. Guillen on the day of discha rge. She denies any chest pain or shortness of breath. Vital signs are stable. S1 and S2 are heard , regular. Lungs are clear to auscultation bilaterally. CONSULTATIONS DURING THIS HOSPITALIZATION: Cardiology, Dr. Mcdowell. DISCHARGE MEDICATIONS: Aspirin 81 mg daily, vitamin D3 of 2000 units daily, Cardizem-CD 120 mg daily , esomeprazole 40 mg daily, ferrous sulfate 325 mg daily, hydrochlorothiazide 25 mg daily, Keppra 500 mg 2 times a day, losartan 100 mg daily, omega 3 fatty acid/fish oil 2 capsules daily, venlafaxine 7 5 mg daily. INVESTIGATIONS DURING THIS HOSPITALIZATION: 1. Noncontrast CT scan of the brain on 06/12/2017, which did not show any acute intracranial abnorma lity. 2. Abdominal ultrasound on 06/15/2017, which was unremarkable. 3. X-rays of the pelvis on 06/16/2017, which showed fracture of the medial aspect of the superior ri ght pubic ramus with associated sclerosis. There is no significant displacement. HOSPITAL COURSE: Ms. Guillen is a pleasant 81-year-old lady who was admitted to [facility] for recurrent falls and acute encephalopathy. She was also found to be anemic. Stoo l occult blood test was negative. Her iron level was low, her TIBC was also low. She has been start ed on iron for iron deficiency. She was also found to be in atrial fibrillation with rapid ventricular response on 06/16/2017. She w as seen by Cardiology Service. She spontaneously cardioverted. Given her history of falls, she was not recommended anticoagulation, but instead to continue aspirin. She is being discharged home in a stable condition. She is also advised to take acetaminophen and ibuprofen over the counter for management of pain. She has been referred for home health for physical therapy. I am also giving her prescription for regul ar front wheel walker adjusted for height. Many thanks for allowing me to participate in your patient's care. Please feel free to contact me wi any questions or concerns. DISCHARGE DESTINATION: Home. TOTAL AMOUNT OF TIME SPENT COORDINATING THIS DISCHARGE: 33 minutes. Please note that her encephalopathy resolved by the time of discharge.
== END 2017-06-17 18:06 | disposition home health service (06) | DRG 811 ==
LOC: ERS 08:26 → ERHOLD 13:21 → OBSVTOIN 13:21 → 2NO 23:19
PROVIDERS: ADMIT Family Medicine; ATTEND Family Medicine
PROC: 30233N1 Transfusion of Nonautologous Red Blood Cells into Peripheral Vein, Percutaneous Approach (ICD-10-PCS; principal; 2017-06-12)
DX: D50.9 Iron deficiency anemia, unspecified (principal); G93.41 Metabolic encephalopathy; N17.9 Acute kidney failure, unspecified; I48.91 Unspecified atrial fibrillation; F03.90 Unspecified dementia, unspecified severity, without behavioral disturbance, psychotic disturbance, mood disturbance, and anxiety; G40.909 Epilepsy, unspecified, not intractable, without status epilepticus; S32.511A Fracture of superior rim of right pubis, initial encounter for closed fracture; D32.0 Benign neoplasm of cerebral meninges; I12.0 Hypertensive chronic kidney disease with stage 5 chronic kidney disease or end stage renal disease; N18.3 Chronic kidney disease, stage 3 (moderate)
CPT/HCPCS: 36415; 36430; 51701; 70450; 71045; 72190; 73522; 76705; 80048; 80053; 81003; 82140; 82274; 82550; 82553; 82607; 82728; 82746; 83540; 83550; 83605; 84484; 85007; 85025; 85027; 85046; 85610; 85730; 86850; 86900; 86901; 93005; 93306; 94760; A4216; G8978-GP-CK; G8979-GP-CJ; G8996-GN-CK; G8997-GN-CK; J7050; P9016

== ENCOUNTER 2017-06-21 08:35 | Emergency (ER) | payer MEDICARE, MEDICAID ==
[2017-06-21 11:08] LABS: ALT (SGPT) 31 U/L (8-55); AST (SGOT) 22 U/L (5-34); Albumin 2.6 g/dL (3.4-4.8); Alkaline Phosphatase 108 U/L (40-150); Anion Gap 11 mmol/L (10-20); BUN (Urea Nitrogen) 22 mg/dL (9.8-20.1); Bilirubin, Total 0.4 mg/dL (0.2-1.2); Calc. Creatinine Clearance 0 mL/min (70-130); Calcium 11.8 mg/dL (7.8-10.44); Carbon Dioxide 25 mmol/L (23-31); Chloride 102 mmol/L (98-107); Estimated GFR-MDRD 40; Globulin 8.7 g/dL (2.4-3.5); Glucose 102 mg/dL (83-110); Potassium 3.8 mmol/L (3.5-5.1); Protein, Total 11.3 g/dL (6.0-8.3); Sodium 134 mmol/L (136-145)
[2017-06-21 11:21] LABS: #Eosinphils 0.1 thou/uL (0.0-0.7); #Lymphocytes 1.8 thou/uL (1.20-3.40); #Monocytes 0.6 thou/uL (0.11-0.59); #Neutrophils 1.7 thou/uL (1.40-6.50); %Basophils 0.9 % (0.0-1.0); %Eosinophils 1.6 % (0.0-10.0); %Lymphocytes 43.7 % (21.0-51.0); %Monocytes 13.3 % (0.0-10.0); %Neutrophils 40.6 % (42.0-75.0); Band 3 % (5-11); Eosinophils 2 % (0-10); Hemoglobin 10.2 g/dL (12.0-16.0); Lymphocytes 50 % (21-51); MDiff Complete? YES; Mean Corpuscular HGB CONC 32.9 g/dL (32.0-36.0); Mean Corpuscular Hemoglobin 31.1 pg (27.0-31.0); Mean Corpuscular Volume 94.5 fl (81.0-99.0); Monocytes 6 % (0-10); Neutrophil 39 % (42-75); PLT Morphology Comment Appears Adequate; Platelet Count 189 thou/uL (130-400); RBC Distribution Width 14.2 % (11.5-14.5); Red Blood Cell (RBC) Count 3.27 mill/uL (4.20-5.40); Rouleaux Formation MODERATE= 6-15 cells (100X) (None Seen); White Blood Cell (WBC) Count 4.1 thou/uL (4.8-10.8)
[2017-06-21 11:47] LABS: Bilirubin Negative (Negative); Blood, Urine Negative (Negative); Clarity CLEAR (Clear); Glucose, Urine (Dipstick) Negative (Negative); Leukocyte Negative (Negative); Nitrite Negative (Negative); Protein, Urine (Dipstick) 30 mg/dL (Neg-Trace); Specific Gravity, Urine 1.017 (1.002-1.036)
[2017-06-21 11:49] LABS: Bacteria/HPF None Seen HPF (None Seen); Hyaline Casts/LPF 7-10 HYALINE CAST LPF (0-3 Hyaline); RBC/HPF 0-3 HPF (0-3); Squamous Epithelial 0-3 HPF (0-3); WBC/HPF 0-3 HPF (0-3)
[2017-06-21] MEDS ORDERED: Ondansetron ODT 4 MG TAB ONE (15:42)
== END 2017-06-21 18:19 | disposition home or self-care (01) ==
LOC: ERS 08:35
DX: E86.0 Dehydration (principal); R62.7 Adult failure to thrive; E78.5 Hyperlipidemia, unspecified; I10 Essential (primary) hypertension; G40.909 Epilepsy, unspecified, not intractable, without status epilepticus; Z79.899 Other long term (current) drug therapy; Z79.82 Long term (current) use of aspirin
CPT/HCPCS: 36415; 51701; 80053; 81003; 81015; 85025; 93005; 96360; A4353; Q0162